=== PATIENT | male | born 1965 | race Caucasian/White ===

== ENCOUNTER 2016-09-21 23:57 | Emergency (ER) | payer OTHER ==
[~2016-09-21 23:57] MED LIST: ALBUTEROL SULF8.5 G2 IH; ALLER-CHLOR4 M1 PO; ATORVASTATIN CA20 M1 PO; CENTRUM COMPLE1 EACH PO; CEPHALEXIN500 M1 PO; CLARITIN; COQ10; COZAAR100 M1 PO; FISH OIL1 CAP PO; GABAPENTIN; GABAPENTIN400 M3 PO; GUAIFEN-CODEIN120 ML PO; HYDROCHLOROTH12.5 MG PO; HYDROCHLOROTHIAZIDE; IBUPROFEN IB200 M1 PO; LOSARTAN; NAPROSYN500 M1 PO; TESSALON PERLE100 M1 PO; TRAMADOL HCL50 MG PO; TRIAMTERENE-HC1 EAC2 PO; VITAMIN D1000 UNI3 PO; ZYRTEC10 MG PO
[2016-09-22] MEDS ORDERED: NORCO 5-325 TA1 EACH PO (01:04)
== END 2016-09-22 01:18 ==
LOC: EDMED 23:57
DX: M25.512 Pain in left shoulder (principal); Z90.89 Acquired absence of other organs
CPT/HCPCS: J1885